=== PATIENT | female | born 1995 | race Caucasian/White ===

== ENCOUNTER 2018-09-12 21:04 | Emergency (ER) | payer BC ==
[2018-09-12] MEDS ORDERED: SILVER SULFADIAZINE 1% CREAM 25 GM TP ONE (23:55)
[2018-09-12] MEDS ORDERED: LIDOCAINE 1%/EPINEPHRINE INJ 20 ML VIAL INJ ONE (23:55)
[2018-09-12] MEDS ORDERED: OXYCODONE-ACETAMINOPHEN 5-325 MG TABLET PO ONE (23:55)
[2018-09-12] MEDS ORDERED: ONDANSETRON 4 MG TAB.RAPDIS PO ONE (23:55)
[2018-09-12] MEDS ORDERED: DIPH/PERTUSS(ACELL)/TETANUS VAC/PF 0.5 ML SYR (>=10YO) IM ONE (23:56)
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
[2018-09-13 02:46] VITALS: BP 103/61
== END 2018-09-13 02:36 | disposition home or self-care (01) ==
LOC: ER 21:04
DX: S01.81XA Laceration without foreign body of other part of head, initial encounter (principal); T22.212A Burn of second degree of left forearm, initial encounter; T22.211A Burn of second degree of right forearm, initial encounter; T20.16XA Burn of first degree of forehead and cheek, initial encounter; T23.111A Burn of first degree of right thumb (nail), initial encounter; X03.4XXA Hit by object due to controlled fire, not in building or structure, initial encounter; Y92.007 Garden or yard of unspecified non-institutional (private) residence as the place of occurrence of the external cause; Z23 Encounter for immunization
CPT/HCPCS: 99282; 90471; 90715; 12014; S0119; J3490